=== PATIENT | female | born 1985 | race Caucasian/White ===

== ENCOUNTER 2016-05-25 01:30 | Emergency (ER) | payer OTHER ==
[~2016-05-25] VITALS: Ht 165.1 cm; Wt 72.0 kg
[~2016-05-25 01:30] MED LIST: COLACE100 MG PO; MOTRIN400 MG PO; PERCOCET 5/31 TABLET PO; PRENATAL TABLE1 EAC3 PO; TYLENOL EXTRA500 MG PO; ZANTAC150 MG PO; ZOFRAN ODT4 MG PO; ZOFRAN8 MG PO; ZOLOFT50 MG PO
[2016-05-25] MEDS ORDERED: AMOXICILLIN875 MG PO (02:14)
[2016-05-25] MEDS ORDERED: MOTRIN600 MG PO (02:14)
[2016-05-25 02:18] VITALS: BP 133/65
== END 2016-05-25 02:21 | disposition home or self-care (01) ==
LOC: EME 01:30
DX: H66.92 Otitis media, unspecified, left ear (principal); J02.9 Acute pharyngitis, unspecified; F17.210 Nicotine dependence, cigarettes, uncomplicated
CPT/HCPCS: 99281; 99284